=== PATIENT | female | born 2000 | race Caucasian/White ===

== ENCOUNTER 2024-07-24 13:42 | Emergency (ER) | payer OTHER, SELFPAY ==
[2024-07-24 13:51] VITALS: BP 124/82; PULSE 102; RESP 16; TEMP 38.8; O2SAT 100
--- NOTE | 2024-07-24 14:04 | ED_ITS ---
HPI - Female Genitourinary General Chief complaint: Urogenital-Female Stated complaint: urinary irritation Time Seen by Provider: 07/24/24 14:02 Source: patient and RN notes reviewed Mode of arrival: ambulatory Limitations: no limitations History of Present Illness HPI Narrative: 23-year-old female presents with concern for urinary tract infection. She reports 3 day history of urgency, frequency, dysuria, hematuria, flank discomfort. She took azo this morning. MD elicited complaint: UTI Related Data Home Medications ?Medication ?Instructions ?Recorded ?Confirmed ?Last Taken ?Type dextroamphetamine-amphetamine 10 07/24/24 Unknown History mg tablet Allergies Allergy/AdvReac Type Severity Reaction Status Date / Time No Known Allergies Allergy Verified 07/24/24 13:56 Review of Systems Review of Systems: CONSTITUTIONAL: Denies malaise, chills, sweats, or fever. CARDIOVASCULAR: Denies chest pain, palpitations, or edema. RESPIRATORY: Denies cough or dyspnea. GASTROINTESTINAL: Denies abdominal pain, nausea, vomiting, diarrhea GENITOURINARY: Reports dysuria, frequency, urgency, suprapubic pressure. Denies flank pain or hematuria. SKIN: Denies rash or itching. MUSCULOSKELETAL: Denies back pain or myalgia. All systems reviewed & are unremarkable except as noted in HPI and below PMFSH Comments At time of signature, agree with nursing past medical, surgical, social and family history. There is no relevant family history pertinent to the presenting complaint Exam Narrative: GENERAL: Well-appearing, well-nourished, and in no acute distress. HEAD: Normocephalic. EYES: PERRLA, conjunctivae clear. NECK: Supple. No lymphadenopathy CHEST: Clear to auscultation. No respiratory distress. HEART: Regular rate and rhythm. ABDOMEN: Soft, nontender upon palpation, nondistended, normal active bowel sounds, no palpable or pulsatile masses, no guarding. No CVA tenderness SKIN: Warm, dry, no rash. NEURO: Alert and oriented x3. PSYCH: Normal mood and affect Course Course Emergency Course: Patient is aware of diagnosis, understands and agrees to treatment plan. Anticipatory guidance given. Patient agrees to follow-up as directed and is aware of reasons to seek care at the emergency department. Portions of this record may have been created with voice recognition software Level of Care: Express Care Visit Vital Signs Vital signs: Vital Signs Temperature 102 F H 07/24/24 13:51 Pulse Rate 102 H 07/24/24 13:51 Respiratory Rate 16 07/24/24 13:51 Blood Pressure 124/82 07/24/24 13:51 Pulse Oximetry 100 07/24/24 13:51 Oxygen Delivery Room Air 07/24/24 13:51 Temperature 102 F H 07/24/24 13:51 Pulse Rate 102 H 07/24/24 13:51 Respiratory Rate 16 07/24/24 13:51 Blood Pressure 124/82 07/24/24 13:51 Pulse Oximetry 100 07/24/24 13:51 Oxygen Delivery Room Air 07/24/24 13:51 Reviewed. MDM - Female Genitourinary MDM Narrative Medical decision making narrative: Exam findings and UA show no acute concerns or changes; patient is non-toxic appearing and is in no distress. Patient is appropriate for outpatient treatment and follow-up. Differential Diagnosis Differential diagnosis: Likely urinary tract infection and cystitis Critical Care Time Critical Care Time Critical Care Time: No Discharge Plan Discharge Clinical Impression: Urinary tract infection Patient Disposition: Home, Self-Care Condition: Stable Instructions: Antibiotic Form, Urinary Tract Infection in Women (ED) Additional Instructions: We will send a urine culture to the lab; if the culture identifies an organism that the prescribed antibiotic will not treat, you will receive a phone call from an urgent care staff member and an appropriate antibiotic will be prescribed. -Your symptoms should begin to improve within a day of starting antibiotics. But you should finish all the antibiotic pills you get. Otherwise your infection might come back. -Also recommend: increase water intake. Tylenol/ibuprofen as needed for pain or fever -Follow-up with your primary care provider for urine recheck or seek ER visit if condition worsens with high fever, nausea, vomiting and severe back pain. Patient Language: [place]ian Prescriptions: New sulfamethoxazole-trimethoprim 800-160 mg tablet 1 tablet PO Q12H 7 Days Qty: 14 0RF phenazopyridine [Pyridium] 200 mg tablet 200 mg PO TID PRN (Reason: pain) Qty: 6 0RF No Action dextroamphetamine-amphetamine 10 mg tablet Follow-up/Referrals: UNKNOWN,DOCTOR [Primary Care Provider] - Stand Alone Forms: Work/School Release IP Time of Disposition: 14:09
[2024-07-24 14:05] LABS: EDUAAPPEAR Cloudy; EDUABILI Negative (Negative); EDUABLOOD 2+ (Negative); EDUACOLOR1 Yellow; EDUAGLUCOSE Negative (Negative); EDUAKETONE Negative (Negative); EDUALEUKO 1+ (Negative); EDUANITRATE Negative (Negative); EDUAPROTEIN 1+ (Negative); EDUASPGRAVITY 1.025; EDUAUROBILI 0.2
--- OUTSIDE RECORDS SUMMARY | 2024-07-24 14:56 | XMS_ITS ---
Author Organization [facility] Address [address] [facility] [address] [place] [address] Care Team Providers Care Complaint Clerk Name Role Phone Ashley Juarez Unavailable [phone] Allergies No Known Allergies Results Component Value Reference Range Notes UDT Reviewed date:06/01/2024 04:37:54 PM Interpretation: Performing Lab: Notes/Report: THC NEG 0 - 50 ng/ml Cocaine NEG 0 - 300 ng/ml Amphetamine POS 0 - 1000 ng/ml Buprenorphine (BUP) NEG 0 - 10 ng/ml Secobarbital (Bar) NEG 0 - 300 ng/ml Oxazepam (BZO) NEG 0 - 300 ng/ml 8-asdwufjxva-8,0-peowsheh-8,3-diphenylpyrrolidine ([place] P) NEG 0 - 300 ng/ml Methamphetamine (MET) NEG 0 - 1000 ng/ml Methylenedioxymethamphetamine (MDMA) NEG 0 - 500 ng/ml Morphine (MOP 300/ECC1213) NEG 0 - 300 ng/ml Methadone (MTD) NEG 0 - 300 ng/ml Phencyclidine (PCP) NEG 0 - 25 ng/ml Nortriptyline (TCA) NEG 0 - 1000 ng/ml Oxycodone NEG 0 - 300 ng/ml x NEG 0 - 300 ng/ml REASON FOR VISIT Follow Up Medications Medication SIG (Take, Route, Frequency, Duration) Notes Start Date End Date Status Vitamin D 50 MCG (1999) 1 tablet Oral ly Once a day Active hydrOXYzine HCl 10 MG 1 tablet Oral Once a day for 30 days As needed Active Amphetamine-Dextroamphetami ne 10 MG 1 tablet in the morning Oral Twice a day for 30 days 06/01/2024 Active Magnesium 300 MG 1 capsule with a kolton l Orally Once a day PRN Active FLUoxetine HCl 20 MG 1 capsule Oral Once a day for 90 days Active Social History Tobacco Use: Social History Observation Description Date Details (start date - stop date) Never Smoker NA - NA Sex Assigned At : Social History Observation Description Sex Assigned At Female Tobacco Control (Standard) Question Answer Notes Tobacco use: Nonsmoker Vital Signs Blood pressure systolic 117 mm Hg 06/01/19 25 Blood pressure diastolic 81 mm Hg 025 Heart Rate 83 /min 06/01/2024 Height 67.00 in 06/01/2024 Weight 141.0 lbs 06/01/2024 BMI 22.08 kg/m2 06/01/2024 Height-cm 170.18 cm 06/01/2024 Weight-kg 63.96 kg 06/01/2024 Encounters Encounter Location Date Provider Diagnosis [facility] [address] [address] 06/01/2024 Ashley Juarez Attention-deficit hyperactivity disorder, predominantly inattentive type F90.0 ; Major depressive disorder, recurrent, mild F33.0 and Generalized anxiety disorder F41.1 Assessments Encounter Date Diagnosis (ICD Code) Assessment Notes Treatment Notes Treatment Clinical Notes Section Notes 06/01/2024 Attention-deficit hyperactivity disorder, 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 - F90.0) 06/01/2024 Major depressive disorder, recurrent, mild (ICD-10 - F33.0) 06/01/2024 Generalized anxiety disorder (ICD-10 - F41.1) 06/01/2024 Other Switch adderall to IR formulation due to insomnia -discussed start with 10mg qAM, may take second dose in afternoons if needed Patient educated on all medications including potential benefits, side effects, risks. Educated on proper dosing schedule and importance of compliance. [place] report checked and consistent with prescription history, no controlled substance prescriptions from other providers. UDT completed -Assessment and treatment plan reviewed with patient. -Compliance with treatment plan importance discussed. -Discussed the risks/benefits of this medication -Discussed medication side effects. -Contact office if symptoms worsen. -Discussed that it can take up to 6-8 weeks to see full therapeutic effects of psychotropic medications. -Crisis prevention hotline 906. Plan Of Treatment Medication Medication Name Sig Start Date Stop Date Notes hydrOXYzine HCl 10 MG 1 tablet Oral Once a day for 30 days Amphetamine-Dextroamphet ER 25 MG 1 capsule in the morning Oral Once a day for 30 days Amphetamine-Dextroamphetamin e 10 MG 1 tablet in the morning Oral Twice a day for 30 days 06/01/2024 FLUoxetine HCl 20 MG 1 capsule Oral Once a day for 90 days Treatment Notes Assessment Notes Other Switch adderall to IR formulation due to insomnia -discussed start with 10mg qAM, may take second dose in afternoons if needed Patient educated on all medications including potential benefits, side effects, risks. Educated on proper dosing schedule and importance of compliance. [place] report checked and consistent with prescription history, no controlled substance prescriptions from other providers. UDT completed Next Appt Details Follow Up: 2 Months, Reason: medication follow up Provider Name:Ashley Juarez, 07/30/2024 11:45:00 AM, [facility] [facility] [address] [facility] [address], [place], [address], Progress Notes * SHARLENE MCGEEOB: 2 (23 yo F)Acc No.[id number]:06/01/2024 Patient: Marcello JEFFERSONSAADIA SEVILLA Provider: GEORGIE CONNER :2000 A ge:23 Y S ex:Female Date:06/01/2024 Address:[address] [place], [place] [id number] Subjective: * Chief Complaints: * F ollow Up * HPI: H istory of Presenting Problem: Anxiety R ates anxiety 5-6/10 with 10 being most severe. Denies recent panic attacks. . D epression R ates depression 2/10 with 10 being most severe. Denies SI. . M ood lability n o hx saturnino. P sychosis n o hx psychosis. S uicidal ideation d enies. A DHD h as difficulty sustaining attention in tasks or play activity, avoids, dislikes, or is reluctant to engage in tasks that require sustained mental effort, forgetful in daily activities. Here for follow up. Hydroxyzine started last apt for anxiety. She is back in courses for the semester, grades are good. States her concentration good. Although reports she is struggling to fall asleep and stay asleep. Taking the Adderall around 7am. Laying down to fall asleep around 9pm, taking one to four hours nightly. Caffeine intake has been minimal. Although feels ADHD symptoms are well controlled on the Adderall. A couple of weeks ago, states she had a period of high anxiety, no significant trigger and has since resolved. She tried hydroxyzine, although is making her drowsy when she takes it. Has utilized about 3 times since last apt. Depression is pretty good . Denies feeling hopeless or helpless, no suicidal ideation. D epression Screening: RODNEY-7 (2018 Edition) F eeling nervous, anxious, or on edge?More than half the days, N ot being able to stop or control worrying M ore than half the days, W orrying too much about different things M ore than hafl the days, T rouble relaxing S everal days, B eing so restless that it is hard to sit still S everal days, B ecoming easily annoyed or irritable M ore than half the days, F eeling afraid as if something awful might happen N ot at all, I f you checked any problems, how difficult have they made it for you to do your work, take care of things at home, or get along with other people? S omewhat difficult. C [place]-Suicide Severity Rating Scale: Suicide Risk (CSRS-screener) i n the past one month Have you wished you were or wished you could go to sleep and not wake up? N o, i n the past one month Have you actually had any thoughts of killing yourself? N o. D epression screening: PHQ-9 L ittle interest or pleasure in doing things N ot at all, F eeling down, depressed, or hopeless S everal days, T rouble falling or staying asleep, or sleeping too much M ore than half the days, F eeling tired or having little energy S everal days, P oor appetite or overeating M ore than half the days, F eeling bad about yourself or that you are a failure, or have let yourself or your family down S everal days, T rouble concentrating on things, such as reading the newspaper or watching television S ever, M oving or speaking so slowly that other people could have noticed; or the opposite, being so fidgety or restless that you have been moving around a lot more than usual N ot at all, T houghts that you would be better off or of hurting yourself in some way N ot at all, T otal Score 8 , I nterpretation M ild Depression. I ntervention D epression Screening Findings P ositve, F ollow-Up for Depression M ental health treatment assessment, Patient follow-up to return when and if necessary, S uicide Risk Assessment Performed 06/01/2024 csrs negative, A dditional Evaluation for Depression P sychiatric interview and evaluation, N juan jose of the standardized tool used for adult depression screening: [facility] Health Questionnaire (PHQ-9). P ast Psychiatric Hospitalizations: Social hx: Single, no children. Lives with sister. 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. Here father is in 2020, he was absent much of here life. Close relationship with mother and older sister. Medical hx: Denies chronic medical history. She has a copper IUD. Denies history of head trauma or seizures. Previous Psychiatric History past diagnosis: MDD, ADHD, OCD personality disorder. previous admissions/IOP/PHP: none history of SA: none family psychiatric history: mother-RODNEY, MDD; father-substance dependence; maternal grandfather-RODNEY. previously trialled medications: Concerta (panic attacks), Prozac, hydroxyzine history of neglect/abuse/trauma: Denies. * ROS: P sychiatric: Patient denies s uicidal thoughts, saturnino, psychosis, auditory / visual hallucinations, irritability, involuntary movements. P atient complains of a nxiety, depressed mood. Mariam Villagomez [facility] for details. * Medical History: * Surgical History: M yringotomy tube placement 04/25/2002Other 04/25/2002 * Hospitalization/Major Diagno stic Procedure: * Family History: F ather: Depressive disorder , Substance abuse , Bipolar disorder . M other: Anxiety disorder , Depressive disorder . * Social History: T obacco Use: T obacco Control (Standard) T obacco use: N onsmoker. M igrated Social History: M igrated Social History: Alcohol Intake: Occasional 03/23/2023,Tobacco Years: Never smoker 03/23/2023. D rug/Alcohol: D o you smoke marijuana?: Denies. Do you drink alcohol?: Yes, Socially, not very often. M iscellaneous: A dvance Care Planning A re you your own decision-maker Y es, D o you have Power of Plant Operations Coordinator for Health or Medical? N o. * Medications: T akingVitamin D 50 MCG (1999 UT) Tablet 1 tablet Orally Once a day Magnesium 300 MG Capsule 1 capsule with a meal Orally Once a day , Notes to Pharmacist: PRNhydrOXYzine HCl 10 MG Tablet 1 tablet Oral Once a day As needed, Notes to Pharmacist: PRNFLUoxetine HCl 20 MG Capsule 1 capsule Oral Once a day Amphetamine- Dextroamphet ER 25 MG Capsule Extended Release 24 Hour 1 capsule in the morning Oral Once a day Medication List reviewed and reconciled with the patientTaking Vitamin D 50 MCG (1999 UT) Tablet 1 tablet Orally Once a day Taking Magnesium 300 MG Capsule 1 capsule with a meal Orally Once a day , Notes to Pharmacist: PRNTaking hydrOXYzine HCl 10 MG Tablet 1 tablet Oral Once a day As needed, Notes to Pharmacist: PRNTaking FLUoxetine HCl 20 MG Capsule 1 capsule Oral Once a day Taking Amphetamine-Dextroamphet ER 25 MG Capsule Extended Release 24 Hour 1 capsule in the morning Oral Once a day Medication List reviewed and reconciled with the patient * Allergies: N .K.D.A.no[Allergies Verified] Objective: * Vitals: B P:117/81mm Hg, HR:83/min, Wt:141.0lbs, Wt-k.96 kg, Ht: 67.00 in, Ht-cm: 170.18 cm, BMI:22.08Index, Body Surface Area: 1.74. * Examination: P sychiatry: Appearance: w ell-groomed. Abnormal body movements: n one. Affect / mood: a ppropriate. Attention: g ood. Attitude: c ooperative. Homicidal ideation: n one. Suicidal ideation: n one. Degree of awareness of surroundings: w ithin normal limits.? Delusions: n o. Hallucinations: n o. Insight: g ood. Judgement: g ood. Orientation: a wake, alert and oriented x 3. Perceptual disorders: n o perceptual disorder noted. Psychomotor activity: w ithin normal range. Speech / language: n ormal rate, volume, and articulation (RVR), clear and coherent. Thought content: a ppropriate. Thought process: i ntact. Assessment: * Assessment: 1. A ttention-deficit hyperactivity disorder, predominantly inattentive type - F90.0 (Primary)? 2. M ajor depressive disorder, recurrent, mild - F33.0 3 . G eneralized anxiety disorder - F41.1 Plan: * Treatment: 2. M ajor depressive disorder, recurrent, mild Refill FLUoxetine HCl Capsule, 20 MG, 1 capsule, Oral, Once a day, 90 days, 90 Capsule, Refills 0.? 3. G eneralized anxiety disorder Continue hydrOXYzine HCl Tablet, 10 MG, 1 tablet, Oral, Once a day As needed, 30 days, 30, Refills 0. 4. O thers Notes: Switch adderall to IR formulation due to insomnia -discussed start with 10mg qAM, may take second dose in afternoons if needed Patient educated on all medications including potential benefits, side effects, risks. Educated on proper dosing schedule and importance of compliance. [place] report checked and consistent with prescription history, no controlled substance prescriptions from other providers. UDT completed Clinical Notes: -Assessment and treatment plan reviewed with patient. -Compliance with treatment plan importance discussed. -Discussed the risks/benefits of this medication -Discussed medication side effects. -Contact office if symptoms worsen. -Discussed that it can take up to 6-8 weeks to see full therapeutic effects of psychotropic medications. -Crisis prevention hotline 988. * Labs: * L ab: UDT (Collection Date & Time - 06/01/2024) Value Reference Range T HC NEG 0 - 50 ng/ml * C ocaine NEG 0 - 300 ng/ml * A mphetamine POS 0 - 1000 ng/ml * B uprenorphine (BUP) NEG 0 - 10 ng/ml * S ecobarbital (Bar) NEG 0 - 300 ng/ml * O xazepam (BZO) NEG 0 - 300 ng/ml * 2 -ethylidene-1,3-bzuwqllm-9,3-diphenylpyrrolidine (EDDP) NEG 0 - 300 ng/ml * M ethamphetamine (MET) NEG 0 - 1000 ng/ml * M ethylenedioxymethamphetamine (MDMA) NEG 0 - 500 ng/ml * M orphine (MOP 300/NIU7802) NEG 0 - 300 ng/ml * M ethadone (MTD) NEG 0 - 300 ng/ml * P hencyclidine (PCP) NEG 0 - 25 ng/ml * P ropoxyphene (PPX) NEG 0 - 300 ng/ml * N ortriptyline (TCA) NEG 0 - 1000 ng/ml * O xycodone NEG 0 - 300 ng/ml * Procedure Codes: 8 0306 DRUG TST PRSMV READ INSTRMNT ASSTD DIR OPT [id number] BEHAV ASSMT W/SCORE & DOCD/STAND [id number] VISIT COMPLEXITY INHERENT TO ONGOING CARE RELATED TO A PATIENT'S SINGLE, SERIOUS CONDITION OR A COMPLEX [id number] CLIN DEPRESSION SCREEN DOC * Follow Up: 2 Months (Reason: medication follow up) * Billing Information: * Visit Code: [id number] OFFICE OUTPATIENT VISIT 25 MINUTES DETAILED HISTORY AND EXAM/MODERATE MEDICAL DECISION MAKING. * Procedure Codes: 70415 DRUG TST PRSMV READ INSTRMNT ASSTD DIR OPT OBS. 75511 BEHAV ASSMT W/SCORE & DOCD/STAND INSTRUMENT. G2211 VISIT COMPLEXITY INHERENT TO ONGOING CARE RELATED TO A PATIENT'S SINGLE, SERIOUS CONDITION OR A COMPLEX CONDITION. G8431 CLIN DEPRESSION SCREEN DOC. * MACHINIST Sign off status: Completed true * Provider: GEORGIE CONNER Date: 0 06/01/2024 Generated for Lucero nguyễn/[place]/Colin on: 0 07/24/2024 02:56 PM CDT History and Physical Notes * HPI (History of Present Illness) Category Sub-Category Detail Notes Category Not es History of Presenting Problem Anxiety Rates anxiety 5-6/10 with 10 being most severe. Denies recent panic attacks. Here for follow up. Hydroxyzine started last apt for anxiety. She is back in courses for the semester, grades are good. States her concentration good. Although reports she is struggling to fall asleep and stay asleep. Taking the Adderall around 7am. Laying down to fall asleep around 9pm, taking one to four hours nightly. Caffeine intake has been minimal. Although feels ADHD symptoms are well controlled on the Adderall. A couple of weeks ago, states she had a period of high anxiety, no significant trigger and has since resolved. She tried hydroxyzine, although is making her drowsy when she takes it. Has utilized about 3 times since last apt. Depression is pretty good . Denies feeling hopeless or helpless, no suicidal ideation. Depression Rates depression 2/1 0 with 10 being most severe. Denies SI. Suicidal ideation denies Psychosis no hx psychosis Mood lability no hx saturnino ADHD has difficulty susta ining attention in tasks or play activity, avoids, dislikes, or is reluctant to engage in tasks that require sustained mental effort, forgetful in daily activities Past Psychiatric Hospitalizations Social hx: Single, no children. Lives with sister. 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. Here father is in 2020, he was absent much of here life. Close relationship with mother and older sister. Medical hx: Denies chronic medical history. She has a copper IUD. Denies history of head trauma or seizures. Previous Psychiatric History past diagnosis: MDD, ADHD, OCD personality disorder. previous admissions/IOP/PHP: none history of SA: none family psychiatric history: mother-RODNEY, MDD; father-substance dependence; maternal grandfather-RODNEY. previously trialled medications: Concerta (panic attacks), Prozac, hydroxyzine history of neglect/abuse/trauma: Denies Depression screening PHQ-9 Little inte rest or pleasure in doing things: Not at all Feeling down, depressed, or hopeless: Se veral days Trouble falling or staying a sleep, or sleeping too much: More than half the days Feeling tired or having little energy: S everal days Poor appetite or overeating: More than h intermediate the days Feeling bad about yourself o r that you are a failure, or have let yourself or your family down: Several days Trouble concentrating on thi ngs, such as reading the newspaper or watching television: Several days Moving or speaking so slowly that other people could have noticed; or the opposite, being so fidgety or restless that you have been moving around a lot more than usual: Not at all Thoughts that you would be b dona off or of hurting yourself in some way: Not at all Total Score: 8 Interpretation: Mild Depression Intervention Depression Screening Findings: P ositve Follow-Up for Depression: [facility] treatment assessment, Patient follow-up to return when and if necessary Suicide Risk Assessment Performed: 06/01 csrs negative Additional Evaluation for De pression: Psychiatric interview and evaluation Name of the standardized too l used for adult depression screening:: Patient Health Questionnaire (PHQ-9) Depression Screening RODNEY-7 (2018 Edition) Feelin g nervous, anxious, or on edge: More than half the days Not being able to stop or control worryi ng: More than half the days Worrying too much about different things : More than hafl the days Trouble relaxing: Several days Being so restless that it is hard to sit still: Several days Becoming easily annoyed or irritable: Mo re than half the days Feeling afraid as if something awful raciel ht happen: Not at all If you checked any problems, how difficult have they made it for you to do your work, take care of things at home, or get along with other people?: Somewhat difficult [place]-Suicide Severity Rating Scale Suicide Risk (CSRS-screener) in the past one month Have you wished you were or wished you could go to sleep and not wake up?: No in the past one month Have y ou actually had any thoughts of killing yourself?: No Examination Category Sub-Category Detail Notes Category Not es Psychiatry Appearance: well-groomed Attitude: cooperative Psychomotor activity: within normal rang e Abnormal body movements: none Attention: good Degree of awareness of surroundings: wit hin normal limits Orientation: awake, alert and lavelle ented x 3 Affect / mood: appropriate Speech / language: normal rate, volume, and articulation (RVR), clear and coherent Insight: good Judgement: good Thought process: intact Thought content: appropriate Perceptual disorders: no perceptual diso rder noted Suicidal ideation: none Homicidal ideation: none Delusions: no Hallucinations: no
--- OUTSIDE RECORDS SUMMARY | 2024-07-24 14:56 | XMS_ITS ---
Author Organization [facility] [email or web address] Address [address] [place] [address] Care Team Providers Care Viscose Cellar Worker Name Role Phone Ann, Ashley Unavailable [phone] REASON FOR VISIT New Refill Request Medications Medication SIG (Take, Route, Frequency, Duration) Notes Start Date End Date Status Amphetamine-Dextroamphetam ine 10 MG 1 tablet Oral Twice a day for 30 days 07/17/2024 Active Social History Sex Assigned At : Social History Observation Description Sex Assigned At Female Encounters Encounter Location Date Provider Diagnosis [facility] [employer] [facility] [address] [place] [address] 07/17/2024 Ashley Juarez Attention-deficit hyperactivity disorder, predominantly inattentive type F90.0 Assessments Encounter Date Diagnosis (ICD Code) Assessment Notes Treatment Notes Treatment Clinical Notes Section Notes 07/17/2024 Attention-deficit hyperactivity disorder, 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 - F90.0) Plan Of Treatment Medication Medication Name Sig Start Date Stop Date Notes Amphetamine-Dextroamphetamin e 10 MG 1 tablet Oral Twice a day for 30 days 07/17/2024 Next Appt Details Provider Name:Ashley Juarez, 07/30/2024 11:45:00 AM, [address], [facility] [address], [place], [address], Progress Notes * SHARLENE MCGEEOB: 2 (23 yo F)Acc No.[id number]:07/17/2024 Patient: Marcello SAADIA RAGLAND :2000 A ge:23 Y S ex:Female Address:[address] [place] [address], [id number] * Refills Refill Amphetamine-Dextroamphetamine Tablet, 10 MG, Oral, 60 Tablet, 1 tablet, Twice a day, 30 days, Refills=0 * true * Date: Generated for Lucero nguyễn/[place]/Colin on: 0 07/24/2024 02:56 PM CDT
--- OUTSIDE RECORDS SUMMARY | 2024-07-24 14:56 | XMS_ITS | Continuity of Care Document ---
Author Organization [facility] cine Address [address] [place] [address] Phone Care Team Providers Care Agronomy Teacher Name Role Phone Wojciech Robledo DO Unavailable Unavailable Allergies, Adverse Reactions, Alerts Substance Reaction Status Criticality No Known Allergies Active No Inform ation Medications Medication Instructions Dosage Effective Dates (start - stop) Status Comments BLISOVI 24 FE (unknown strength) Not Available - Active Advance Directives Directive Yes / No Effective Date File Name No Information Encounters Encounter Description Practice Location Reason(s) For Visit Diagnoses Date Provider Providers Copied on Encounter [facility], [address], [place], [id number], [place] tel:[phone] [facility] No Information Venkat Jeffrey. [address], [place], [id number], [place]. tel:[phone] Family History Family Member Type Diagnosis Age At Onset Mother Problem Mental illness Father Problem Cardiovascular disease Sister Problem Cardiovascular disease Problem Family history of Mental ill ness Brother Problem Mental illness Father Problem Cardiac Arrest Father Problem Mental illness Sister Problem Mental illness Father Problem hypertension Immunizations Vaccine Date Status Comments Pfizer-BioNTech Covid administered Анна rce: Other Registry Pfizer-BioNTech Covid administered Анна rce: Other Registry Fluzone/Flulaval Quad administered Source : Other Registry Bexsero administered Source: Other R egistry Varicella (Varivax) administered Source: Other Registry Bexsero administered Source: Other R egistry Meningococcal, MCV4, unspeci fied conjugate formulation(groups A, C, Y and W-135) administered Source: Other Regist ry hepatitis A vaccine, unspeci fied formulation administered Source: Other Regist ry Human Papillomavirus 9-valent vaccine adm inistered Source: Other Registry Tdap (7 yrs and up) (Adecel) administered Source: Other Registry meningococcal MCV4P administered Source: Other Registry HPV (9-valent) administered Source: Other Registry Hep A (ped/adol, 2 dose) administered Анна rce: Other Registry Varicella administered Source: Other R egistry MMR (MMR-II) administered Source: Other R egistry DTaP - IPV (4-6 yr) (Kinrix) administered Source: Other Registry Pneumo (2 yrs and up) (PPSV2 3) (Pneumovax) administered Source: Other Regist ry Pneumococcal (PCV13) (Prevnar 13) adminis tered Source: Other Registry MMR (MMR-II) administered Source: Other R egistry Haemophilus influenzae type b vaccine, conjugate unspecified formulation administered Source: Other Regist ry hepatitis B vaccine, unspeci fied formulation administered Source: Other Regist ry polio, inactive (IPV) (IPOL) administered Source: Other Registry DTaP (under 7yrs) (Daptacel) administered Source: Other Registry Haemophilus influenzae type b vaccine, conjugate unspecified formulation administered Source: Other Regist ry hepatitis B vaccine, unspeci fied formulation administered Source: Other Regist ry polio, inactive (IPV) (IPOL) administered Source: Other Registry DTaP (under 7yrs) (Daptacel) administered Source: Other Registry Hib (ActHIB) administered Source: Other R egistry Hep B (ped/adol, 3 dose) administered Анна rce: Other Registry polio, inactive (IPV) (IPOL) administered Source: Other Registry DTaP (under 7yrs) (Daptacel) administered Source: Other Registry Payers Payer name Insurance type Covered green party ID Authoriza tion(s) No Information Social History Type Description Quantity Date Captured Comments Alcohol Use Details Unknown Caffeine Use Details Unknown Tobacco Use Status No Information Smoking Status No Information Sex Female Chief Complaint And Reason For Visit No Information Reason For Referral Reason For Referral No Information History Of Present Illness Encounter Date Complaint History Of Prese nt Illness No Information Functional Status Date Functional Assessmen t No Information Instructions Date Instruction Additional Infor mation No Information Assessments Type Assessment Date No Information Patient Care Teams Name Effective Dates (start - stop) Status Members No Information
--- OUTSIDE RECORDS SUMMARY | 2024-07-24 14:56 | XMS_ITS | Clinical Summary ---
Author Organization [facility] Address [address] [place] [address] Care Team Providers Care Neonatal Nurse Name Role Phone Unavailable Primary Care Provider Unavailabl e Source Comments This disclosure is being made pursuant to the [employer] program and maynot contain all information available regarding this patient.[facility] Allergies No known active allergies Medications PARoxetine (PAXIL) 10 MG tabletIndication s:Anxiety Take 1 tablet by mouth daily. 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 2010 Overview (12/10/2013): Overview: NIXON JOHANSEN CNP Atopic dermatitis and related condition 02/20/20 10 Overview (12/10/2013): Overview: LOLA MILLS Hemangioma of skin and subcutaneous tissue 10/10 Overview (12/10/2013): Overview: [place]A [place]S Routine or child health check 07/09/2009 Overview (12/10/2013): Overview: LEAH VALIENTE MD Nevus, non-neoplastic 11/19/2008 Overview (12/10/2013): Overview: LEAH VALIENTE MD Immunizations Immunization Administration Dates Next Due DTaP (Infanrix) DTaP 11/18/2006,03/04/20 05,05/20/2003,07/24,02/12/2002 DTaP-Hepatitis B-Polio (Pedi arix) ZKLB-AaeV-MOS 12/20/2002 Haemophilus Influenzae type b (ProHIBIT) Hib PRP-D 12/20/2002 Hepatitis A pediatric 12/01/2015,12/28/2012 Hepatitis B-Haemophilus infl uenzae type b (Comvax) HepB-Hib 07/24/2002,02/12/2002 Human Papillomavirus (Gardasil 4) HPV4 3 Human Papillomavirus (Gardas il 9) 9vHPV 10/07/2015 LIVE Eetihuy-Gjlgw-Dquygph ( M-M-R II) MMR 12/20/2002 LIVE Dbsgoao-Ejjcw-Xxckvlm-V aricella (ProQuad) MMRV 11/18/2006 LIVE Varicella (Varivax) YUDITH 03/04/2005 Meningococcal Conjugate (Men veo) MCV4 MenACWY-CRM 12/28/2012 Pneumococcal Conjugate-7 (Pr evnar 7) PCV7 07/19/2003,05/20/2003 Polio (Ipol) IPV 11/18/2006, 3,07/24/2002,02/12 Tdap 12/28/2012 Family History Medical History Relation Name Comments Other Other 1 Heart disease - All Family: Noted on 2008-11-19 10:31:49 Other Other 2 Hypertension - All Family: Noted on 2008-11-19 10:31:49 Other Other 3 Diabetes mellit us - All Family: Noted on 2008-11-19 10:31:49 Other Other 4 Depressive diso rder - All Family: Noted on 2008-11-19 10:31:49 Relation Name Status Comments Other 1 Other 2 Other 3 Other 4 Social History Tobacco Use Types Packs/Day Years Used Date Smoking Tobacco: Never Smokeless Tobacco: Never Alcohol Use Standard Drinks/Week Comments Not Asked 0 (1 standard drink = 0.6 oz pur e alcohol) Comments No Sex and Gender Information Value Date Recorded Sex Assigned at Not on file Legal Sex Female 1:17 PM CDT Gender Identity Not on file Sexual Orientation Not on file Last Filed Vital Signs Vital Sign Reading Time Taken Comments Blood Pressure 122/82 02/07/2017 9:29 AM CDT Pulse 80 12/01/2015 12:36 PM CDT Temperature 36.7 C (98.1 F) 12/01/2015 12:36 PM CDT Respiratory Rate 20 12/01/2015 12:36 PM CDT Oxygen Saturation 100% 12/01/2015 12:36 PM CDT Inhaled Oxygen Concentration - - Weight 64.6 kg (142 lb 6.4 oz) 02/07/2017 9:29 A M CDT Height 167 cm (5' 5.75 ) 02/07/2017 9:29 AM CDT Body Mass Index 23.16 02/07/2017 9:29 AM CDT Plan of Treatment Health Maintenance Due Date Last Done Comments HPV 2001 Lab-Cholesterol Screening 2001 Lab-Hepatitis C Screening 2001 Chlamydia Screening 2017 Meningococcal B Vaccine (1 of 2 - Standard) 2017 Annual Wellness Visit 12/12/2019 Cervical Cancer Screening 2022 Pap Smear 2022 Tetanus/Pertussis Vaccine Teen/Adult (7 - Td or Tdap) 12/28/2022 12/28/2012, 11/18/2006, 03/04/2005, Additional history exists COVID-19 Vaccine ( - 2023- season) 2023 Influenza Vaccine (#1) 2023 Zoster (Shingles) Vaccine 50+ (1 of 2) 12/12/2051 RSV Adult (1 - 1-dose 75+ series) 2076 HIB Vaccine Completed 12/20/2002, 04/2002, 02/12/2002 Hepatitis B Vaccine Completed 12/20/2002, 07/24/2002, 02/12/2002 Pneumococcal Vaccines 0-49 yo Aged Out 07/19/2003, 05/20/2003 No longer eligibl e based on patient's age to complete this topic IPV Vaccine Completed 11/18/2006, 11/24, 12/20/2002, Additional history exists Meningococcal Conjugate Vaccine Aged Out 12/28/2012 No longer eligible based on patient's age to complete this topic HPV Vaccine (F:9-26YO,M: 9-22) Completed 10/07/2015, 12/28/2012 Hepatitis A Vaccine Completed 12/01/2015, 3 RSV < 20 Months Aged Out No longer el igible based on patient's age to complete this topic Insurance
--- OUTSIDE RECORDS SUMMARY | 2024-07-24 14:56 | XMS_ITS | Referral Summary ---
Author Organization [facility] Address [address] [place] [address] Care Team Providers Care Box Lidder Name Role Phone Marjorie Stanton Primary Care Provider [phone] Allergies No known active allergies Medications FLUoxetine (PROzac) 40 mg capsule Take by mouth daily 09/05/2022 Active Hospital, Clinic, or Other Facility Administered Medication Ordered Dose Route Frequency Start Date End Date Status copper (PARAGARD) 380 square mm IUD 1 eachIndications:Pre gnancy Contraception 1 each intrauterine Continuous (implanted device) 11/05/2022 3 Active Active Problems No known active problems Social History Tobacco Use Types Packs/Day Years Used Date Smoking Tobacco: Never Smokeless Tobacco: Never AUDIT-C Answer Date Recorded Q1: How often do you have a drink containing alc ohol? Monthly or less 11/05/2022 Average Number of Drinks Not on file 023 Q3: How often do you have si x or more drinks on one occasion? Never 11/05/2022 Personal Safety Answer Date Recorded Getting School Help Needed Not on file 07/09 Comments No Sex and Gender Information Value Date Recorded Sex Assigned at Female 11/05/2022 9:25 AM CDT Legal Sex Female 4:27 PM CDT Gender Identity Female 11/05/2022 9:25 AM CDT Sexual Orientation Straight 11/05/2022 9: 25 AM CDT Last Filed Vital Signs Vital Sign Reading Time Taken Comments Blood Pressure 133/85 11/05/2022 9:20 AM CDT Pulse - - Temperature - - Respiratory Rate - - Oxygen Saturation - - Inhaled Oxygen Concentration - - Weight 71.2 kg (157 lb) 11/05/2022 9:20 AM CDT Height 170.2 cm (5' 7 ) 11/05/2022 9:20 AM CDT Body Mass Index 24.59 11/05/2022 9:20 AM CDT Plan of Treatment Not on file Insurance [facility] Care Teams Box Lidder Relationship Specialty Start Date End Date Marjorie Stanton DO [address] [facility] [address] [place] [address] PCP - General Family Medicine 10/08/22
--- OUTSIDE RECORDS SUMMARY | 2024-07-24 14:56 | XMS_ITS ---
Author Organization [facility] Address [address] [facility] [address] [place] [address] Care Team Providers Care Account Collector Name Role Phone Ann Ashley Unavailable [phone] REASON FOR VISIT Amphetamine Medications Medication SIG (Take, Route, Frequency, Duration) Notes Start Date End Date Status Amphetamine-Dextroam phetamine 10 MG 1 tablet Oral Twice a day for 30 days corrected sig, cancel previous script 06/04/2024 Active Social History Sex Assigned At : Social History Observation Description Sex Assigned At Female Encounters Encounter Location Date Provider Diagnosis [facility] [address] [place] [address] 06/04/2024 Ashlye Juarez Attention-deficit hyperactivity disorder, predominantly inattentive type F90.0 Assessments Encounter Date Diagnosis (ICD Code) Assessment Notes Treatment Notes Treatment Clinical Notes Section Notes 06/04/2024 Attention-deficit hyperactivity disorder, 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 - F90.0) Plan Of Treatment Medication Medication Name Sig Start Date Stop Date Notes Amphetamine-Dextroamphe tamine 10 MG 1 tablet Oral Twice a day for 30 days 06/04/2024 corrected sig, cance l previous script Next Appt Details Provider Name:Ashley Juarez, 07/30/2024 11:45:00 AM, [address], [place], [address], Progress Notes * SHARLENE MCGEEOB: 2 (23 yo F)Acc No.[id number]:06/04/2024 Patient: SAADIA WORTHY :2000 A ge:23 Y S ex:Female Address:[address] [place] [address], [id number] * Refills Refill Amphetamine-Dextroamphetamine Tablet, 10 MG, Oral, 60 Tablet, 1 tablet, Twice a day, 30 days, Refills=0 * true * Date: Generated for Lucero nguyễn/[place]/Neelamitting on: 0 07/24/2024 02:56 PM CDT
--- OUTSIDE RECORDS SUMMARY | 2024-07-24 14:56 | XMS_ITS | Patient Health Record ---
Author Organization [facility] Address [address] [facility] [address] [place] [address] Care Team Providers Care Millwright Supervisor Name Role Phone Ashley Juarez Unavailable [phone] Migration, Provider Unavailable Unavailable Allergies No Known Allergies Results Component Value Reference Range Notes UDT Reviewed date:06/01/2024 04:37:54 PM Interpretation: Performing Lab: Notes/Report: THC NEG 0 - 50 ng/ml Cocaine NEG 0 - 300 ng/ml Amphetamine POS 0 - 1000 ng/ml Buprenorphine (BUP) NEG 0 - 10 ng/ml Secobarbital (Bar) NEG 0 - 300 ng/ml Oxazepam (BZO) NEG 0 - 300 ng/ml 7-pumdghvyny-4,8-mosgaxlz-9,3-diphenylpyrrolidine (CHARLOTTE P) NEG 0 - 300 ng/ml Methamphetamine (MET) NEG 0 - 1000 ng/ml Methylenedioxymethamphetamine (MDMA) NEG 0 - 500 ng/ml Morphine (MOP 300/PIX6495) NEG 0 - 300 ng/ml Methadone (MTD) NEG 0 - 300 ng/ml Phencyclidine (PCP) NEG 0 - 25 ng/ml Nortriptyline (TCA) NEG 0 - 1000 ng/ml Oxycodone NEG 0 - 300 ng/ml x NEG 0 - 300 ng/ml UDT Reviewed date:02/27/2024 02:01:48 PM Interpretation: Performing Lab: Notes/Report: THC n 0 - 50 ng/ml Cocaine n 0 - 300 ng/ml Amphetamine p 0 - 1000 ng/ml Buprenorphine (BUP) n 0 - 10 ng/ml Secobarbital (Bar) n 0 - 300 ng/ml Oxazepam (BZO) n 0 - 300 ng/ml 3-fhtmnytsyv-8,4-vdprxsqv-8,3-diphenylpyrrolidine (CHARLOTTE P) n 0 - 300 ng/ml Methamphetamine (MET) n 0 - 1000 ng/ml Methylenedioxymethamphetamine (MDMA) n 0 - 500 ng/ml Morphine (MOP 300/PFD3019) n 0 - 300 ng/ml Methadone (MTD) n 0 - 300 ng/ml Phencyclidine (PCP) n 0 - 25 ng/ml Nortriptyline (TCA) n 0 - 1000 ng/ml Oxycodone n 0 - 300 ng/ml x n 0 - 300 ng/ml Reason For Referral No Information Medications Medication SIG (Take, Route, Frequency, Duration) Notes Start Date End Date Status Vitamin D 50 MCG (1999) 1 tablet Oral ly Once a day Active FLUoxetine HCl 20 MG 1 capsule Oral Once a day for 90 days Active hydrOXYzine HCl 10 MG 1 tablet Oral Once a day for 30 days As needed Active Amphetamine-Dextroamphetami ne 10 MG 1 tablet Oral Twice a day for 30 days 07/17/2024 Active Magnesium 300 MG 1 capsule with a kolton l Orally Once a day PRN Active Social History Tobacco Use: Social History Observation Description Date Details (start date - stop date) Never Smoker NA - NA Sex Assigned At : Social History Observation Description Sex Assigned At Female Tobacco Control (Standard) Question Answer Notes Tobacco use: Nonsmoker Problems Problem Type SNOMED Code ICD Code Onset Dates Problem Status W/U Status Risk Notes Problem Mild recurrent major depression (44140823) Major depressive disorder, recurrent, mild (F33.0) Active confirmed Problem Generalized anxiety disorder (22778284) Generalized anxiety disorder (F41.1) Active confirmed Problem Attention deficit hyperactivity disorder, predominantly inattentive type (94643732) Attention-deficit hyperactivity disorder, predominantly inattentive type (F90.0) Active confirmed Vital Signs Heart Rate 83 /min 06/01/2024 Height-cm 170.18 cm 06/01/2024 Blood pressure diastolic 81 mm Hg 06/01/2024 Weight-kg 63.96 kg 06/01/2024 Height 67.00 in 06/01/2024 Blood pressure systolic 117 mm Hg 06/01/2024 Weight 141.0 lbs 06/01/2024 BMI 22.08 kg/m2 06/01/2024 Encounters Encounter Location Date Provider Diagnosis [facility], [facility] [address] [place] [address] 08/08/2023 Ashley Ann Generalized anxiety disorder F41.1 ; Major depressive disorder, recurrent, mild F33.0 and Attention-deficit hyperactivity disorder, predominantly inattentive type F90.0 [facility], [facility] [address] [place] [address] 11/16/2023 Ashley Ann Attention-deficit hyperactivity disorder, predominantly inattentive type F90.0 ; Major depressive disorder, recurrent, mild F33.0 and Generalized anxiety disorder F41.1 [facility], [facility] [address] [place] [address] 02/27/2024 Ashley Ann Attention-deficit hyperactivity disorder, predominantly inattentive type F90.0 ; Major depressive disorder, recurrent, mild F33.0 and Generalized anxiety disorder F41.1 [facility], [facility] [address] [place] [address] 06/01/2024 Ashley Ann Attention-deficit hyperactivity disorder, predominantly inattentive type F90.0 ; Major depressive disorder, recurrent, mild F33.0 and Generalized anxiety disorder F41.1 [facility], [facility] [address] [place] [address] 08/08/2023 Provider Migration [facility], [facility] [address] [place] [address] 09/06/2023 Provider Migration [facility], [facility] [address] [place] [address] 09/10/2023 Provider Migration [facility], [facility] [address] [place] [address] 09/11/2023 Provider Migration [facility], [facility] [address] [place] [address] 05/15/2024 Ashley Ann Attention-deficit hyperactivity disorder, predominantly inattentive type F90.0 [facility], [facility] [address] [place] [address] 06/04/2024 Ashley Juarez Attention-deficit hyperactivity disorder, predominantly inattentive type F90.0 [facility], [facility] [address] [place] [address] 09/23/2023 Ashley Ann Attention-deficit hyperactivity disorder, predominantly inattentive type F90.0 [facility] [address] [place] [address] 09/23/2023 Ashley Ann [facility], [facility] [address] [place] [address] 09/28/2023 Ashley Ann [facility], [facility] [address] [place] [address] 01/04/2024 Ashley Ann Attention-deficit hyperactivity disorder, predominantly inattentive type F90.0 [facility] [address] [place] [address] 02/08/2024 Ashley Ann Major depressive disorder, recurrent, mild F33.0 and Attention-deficit hyperactivity disorder, predominantly inattentive type F90.0 [facility] [address] [place] [address] 03/28/2024 Ashley Ann Attention-deficit hyperactivity disorder, predominantly inattentive type F90.0 and Major depressive disorder, recurrent, mild F33.0 [facility] [address] [place] [address] 05/03/2024 Ashley Ann Attention-deficit hyperactivity disorder, predominantly inattentive type F90.0 [facility] [address] [place] [address] 05/07/2024 Ashley Ann Attention-deficit hyperactivity disorder, predominantly inattentive type F90.0 [facility] [address] [place] [address] 05/09/2024 Ashley Ann [facility] [address] [place] [address] 07/17/2024 Ashley Ann Attention-deficit hyperactivity disorder, predominantly inattentive type F90.0 Assessments Encounter Date Diagnosis (ICD Code) Assessment Notes Treatment Notes Treatment Clinical Notes Section Notes 11/16/2023 Attention-deficit hyperactivity disorder, 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 - F90.0) 09/23/2023 Attention-deficit hyperactivity disorder, 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 - F90.0) 11/16/2023 Major depressive disorder, recurrent, mild (ICD-10 - F33.0) 02/27/2024 Attention-deficit hyperactivity disorder, 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 - F90.0) 01/04/2024 Attention-deficit hyperactivity disorder, 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 - F90.0) 02/08/2024 Major depressive disorder, recurrent, mild (ICD-10 - F33.0) 08/08/2023 Major depressive disorder, recurrent, mild (ICD-10 - F33.0) 08/08/2023 Generalized anxiety disorder (ICD-10 - F41.1) 08/08/2023 Attention-deficit hyperactivity disorder, 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 - F90.0) 03/28/2024 Attention-deficit hyperactivity disorder, 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 - F90.0) 05/03/2024 Attention-deficit hyperactivity disorder, 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 - F90.0) 05/15/2024 Attention-deficit hyperactivity disorder, 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 - F90.0) Electronic Prior Authorization was requested for Amphetamine-Dext roamphet ER 25 MG Capsule Extended Release 24 Hour. Provider can order medication once approval received. 06/01/2024 Attention-deficit hyperactivity disorder, 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 - F90.0) 06/04/2024 Attention-deficit hyperactivity disorder, 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 - F90.0) 07/17/2024 Attention-deficit hyperactivity disorder, 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 - F90.0) 06/01/2024 Major depressive disorder, recurrent, mild (ICD-10 - F33.0) 05/07/2024 Attention-deficit hyperactivity disorder, 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 - F90.0) Electronic Prior Authorization was requested for Amphetamine-Dext roamphet ER 25 MG Capsule Extended Release 24 Hour. Provider can order medication once approval received. 02/08/2024 Attention-deficit hyperactivity disorder, 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 - F90.0) 02/27/2024 Major depressive disorder, recurrent, mild (ICD-10 - F33.0) 03/28/2024 Major depressive disorder, recurrent, mild (ICD-10 - F33.0) 11/16/2023 Generalized anxiety disorder (ICD-10 - F41.1) 02/27/2024 Generalized anxiety disorder (ICD-10 - F41.1) 06/01/2024 Generalized anxiety disorder (ICD-10 - F41.1) 11/16/2023 Other Increase Adderall to 25mg daily for ADHD symptoms. Patient educated on all medications including potential benefits, side effects, risks. Educated on proper dosing schedule and importance of compliance. [place] checked and consistent with prescription history, no controlled substance prescriptions from other providers. 02/27/2024 Other Start hydroxyzine 10mg qd prn for anxiety. Patient educated on all medications including potential benefits, side effects, risks. Educated on proper dosing schedule and importance of compliance. [place] checked and consistent with prescription history, no controlled substance prescriptions from other providers. 06/01/2024 Other Switch adderall to IR formulation [...] effects of psychotropic medications. -Crisis prevention hotline 678. Plan Of Treatment Next Appt Details Provider Name:Ashley Juarez, 07/30/2024 11:45:00 AM, [address] [facility] [address], [facility] [address], [place], [address], Insurance Providers Payer Name Payer Address Payer Phone Subscriber Number Group Number Insured Name Patient Relationship to Insured Coverage Start Date Coverage End Date r [address] [address] [place] [address] [id number] SAADIA MCGEE Self - patient is the insured Medical (General) History Medical History History ICD Code Problems: Attention deficit hyperactivity disorder, predominantly inattentive type Generalized anxiety disorder Mild recurrent major depression , Surgical History Surgery Date(Month/Year) Myringotomy tube placement 04/25/2002 Other 04/25/2002
--- OUTSIDE RECORDS SUMMARY | 2024-07-24 14:56 | XMS_ITS | Clinical Summary ---
Author Organization [facility] Address [address] [place] [address] Care Team Providers Care Fabrication Engineer Name Role Phone Marjorie Stanton Primary Care Provider [phone] Allergies No known active allergies Medications FLUoxetine (PROzac) 40 mg capsule Take by mouth daily 09/05/2022 Active Hospital, Clinic, or Other Facility Administered Medication Ordered Dose Route Frequency Start Date End Date Status copper (PARAGARD) 380 square mm IUD 1 eachIndications:Pre gnancy Contraception 1 each intrauterine Continuous (implanted device) 11/05/2022 3 Active Active Problems No known active problems Surgical History Surgery Date Site/Laterality Comments WISDOM TOOTH EXTRACTION Family History Medical History Relation Name Comments Hypertension Father Anxiety disorder Mother Relation Name Status Comments Father Mother Social History Tobacco Use Types Packs/Day Years [...] Orientation Straight 11/05/2022 9: 25 AM CDT Obstetrics History Para Term AB IAB SAB Ectopic Multiple Livin g Live Births 0 0 0 0 0 0 0 0 0 0 0 Last Filed Vital Signs Vital Sign Reading [...] 11/05/2022 9:20 AM CDT Plan of Treatment Health Maintenance Due Date Last Done Comments Cervical Cancer Screening 2001 Chlamydia and Gonorrhea (GC/ CT) Screening 2001 Depression Screening 2001 Hepatitis C Screening 2001 Regular Well Visit/Exam 18-64 12/12/2019 DTaP/Tdap/Td Vaccine (7 - Td or Tdap) 12/28/2022 12/28/2012, 11/18/2006, 11/18/2006, Additional history exists Covid-19 Vaccine (3 - 2023-2 5 season) 2023 10/04/2020, 09/13/2020 Influenza Vaccine (#1) 2023 12/24/2018, 2018 Hepatitis B Screening Completed 12/20/2002 , 12/20/2002, 07/24/2002, Additional history exists Pneumococcal vaccine <65 Completed 004, 07/19/2003, 05/20/2003, Additional history exists HPV Vaccines Completed 10/07/2015, 09/23, 12/28/2012, Additional history exists Varicella Vaccines Completed 05/18/2018, 0 11/18/2006, 11/18/2006 Meningococcal B Vaccine Completed 06/27/2018, 05/18 Insurance [facility] H[facility]/PPO Address: [address] [address] Care Teams Fabrication Engineer Relationship Specialty Start Date End Date Marjorie Stanton DO [address] [facility] [address] [place] [address] PCP - General Family Medicine 10/08/22
--- OUTSIDE RECORDS SUMMARY | 2024-07-24 15:02 | XMS_ITS | Continuity of Care Document ---
Author Organization [facility] Address [address] [place] [address] Phone Care Team Providers Care Systems Program Manager Name Role Phone Wojciech Robledo DO Unavailable [...] Date Provider Providers Copied on Encounter [facility], [address], [place], [id number], [place] tel:[phone] [facility] No Information Venkat Jefrfey. [address] [place], [place], [id number], [place]. tel:[phone] Family History Family Member Type Diagnosis Age [...]
== END 2024-07-24 14:12 | disposition home or self-care (01) ==
PROVIDERS: Emergency Provider Nurse Practitioner
DX: N39.0 Urinary tract infection, site not specified (principal)
CPT/HCPCS: 81003; 87086; 99203; G0463

== ENCOUNTER 2024-09-25 10:39 | Outpatient (CLI) | payer OTHER, SELFPAY ==
--- NOTE | ~2024-09-25 | US_ITS ---
Pelvic ultrasound. Clinical History: IUD Technique: Realtime transabdominal and transvaginal scanning of the pelvis was performed. Color flow Doppler and Doppler spectral analysis were performed. Findings: The uterus is retroverted.. The endometrial stripe has a thickness of 6 mm. IUD in satisfa ctory position. No focal mass is identified. The right ovary measures 4.9 x 1.3 x 2.1 cm. No significant right ovarian or adnexal mass is seen. The left ovary measures 4.5 x 1.5 x 2.6 cm. No significant left ovarian or adnexal mass is seen. There is trace free fluid in the cul de sac. Impression: IUD in satisfactory position. Trace free fluid. Reviewed, dictated and finalized at location . Impression: IUD in satisfactory position. Trace free fluid.
== END 2024-09-25 10:40 | disposition home or self-care (01) ==
LOC: MICIMG 10:40
PROVIDERS: PCP Obstetrics & Gynecology; Visit Provider Obstetrics & Gynecology
DX: R10.2 Pelvic and perineal pain (principal); Z30.431 Encounter for routine checking of intrauterine contraceptive device
CPT/HCPCS: 76830; 76856